=== PATIENT | female | born 1990 | race Caucasian/White ===

== ENCOUNTER 2021-06-28 09:30 | Emergency (ER) | payer OTHER ==
[~2021-06-28 09:30] MED LIST: LODINE CAP 300300 MG PO; PYRIDIUM200 MG PO
[2021-06-28 11:51] LABS: RED BLOOD COUNT 4.65 M/UL (4.00-5.10); WHITE BLOOD COUNT 4.1 K/UL (4.5-11.0)
[2021-06-28 12:20] LABS: BUN/CREATININE RATIO 21 (0-10)
== END 2021-06-28 14:42 | disposition home or self-care (01) ==
LOC: ER1 09:30
PROVIDERS: Physician Assistant
DX: M54.50 Low back pain, unspecified (principal)
CPT/HCPCS: 80053; 81001; 84703; 85025; 99284

== ENCOUNTER → 2022-01-27 | Outpatient (CLI) | payer MEDICARE | LOC: US 13:30 | DX: R10.2 Pelvic and perineal pain (principal) | CPT/HCPCS: 76830 ==